=== PATIENT | female | born 1935 | race Caucasian/White ===

== ENCOUNTER → 2017-04-07 | Outpatient (CLI) | payer MEDICARE ==
[~2017-04-07] MED LIST: ISOVUE-370 76% 100ML VIAL (Q9967) As Ordered ONE
--- NOTE | 2017-04-07 15:29 | REP ---
CT of the chest with IV contrast for lymphoma restaging: Comparison is 04/21/2016. There is no mediastinal, hilar or axillary lymph node enlargement. This is unchanged. I suspect the spleen is enlarged measuring 15 cm AP diameter. This is unchanged from the prior study. The liver is not included in entirety, however, does not appear enlarged. The parenchyma of the liver and spleen appear homogeneous. There are no infiltrates or effusions. There are no lung masses or nodules. The proximal descending thoracic aorta is mildly ectatic measuring up to 3.7 cm transverse diameter. The ascending aorta measures 3.3 cm transverse diameter. The descending thoracic aorta gradually tapers to 2.8 cm diameter at the diaphragm. Cardiac size is upper normal. There is no pericardial effusion. There are surgical clips in the gallbladder fossa. Visualized portion of the pancreas is unremarkable. The adrenals and renal upper poles are unremarkable. There are no lytic, blastic or destructive skeletal changes. Impression: There is no lymphadenopathy. I suspect there is splenomegaly. This is unchanged. There are no infiltrates or effusions. There are no lytic, blastic or destructive skeletal changes. Cardiac size is upper normal, unchanged. There is mild ectasia of the proximal descending thoracic aorta, unchanged. Signed by Terrance Raza MD 04/07/2017 03:21 P
== END ==
LOC: M RAD 10:30
PROVIDERS: ATTEND Internal Medicine Hematology & Oncology
DX: C83.83 Other non-follicular lymphoma, intra-abdominal lymph nodes (principal)
CPT/HCPCS: 71260; Q9967

== ENCOUNTER → 2017-07-02 | Outpatient (REF) | payer MEDICARE | LOC: M SFHCCLAY 13:23 | PROVIDERS: ATTEND Family Medicine | DX: I10 Essential (primary) hypertension (principal); Z53.8 Procedure and treatment not carried out for other reasons ==

== ENCOUNTER → 2018-04-08 | Outpatient (CLI) | payer MEDICARE ==
[~2018-04-08] MED LIST changes: +ISOVUE-370 76% 100ML VIAL (Q9967) As Ordered; -ISOVUE-370 76% 100ML VIAL (Q9967) As Ordered ONE
== END ==
LOC: M RAD 12:08
DX: C85.89 Other specified types of non-Hodgkin lymphoma, extranodal and solid organ sites (principal); R16.1 Splenomegaly, not elsewhere classified; J84.10 Pulmonary fibrosis, unspecified; R59.0 Localized enlarged lymph nodes
CPT/HCPCS: Q9967

== ENCOUNTER → 2018-04-26 | Outpatient (CLI) | payer MEDICARE | LOC: M RAD 08:18 | DX: Z85.79 Personal history of other malignant neoplasms of lymphoid, hematopoietic and related tissues (principal); K44.9 Diaphragmatic hernia without obstruction or gangrene; K57.30 Diverticulosis of large intestine without perforation or abscess without bleeding | CPT/HCPCS: Q9967 ==

== ENCOUNTER → 2018-08-01 | Outpatient (CLI) | payer MEDICARE | LOC: M RAD 13:09 | DX: C85.89 Other specified types of non-Hodgkin lymphoma, extranodal and solid organ sites (principal) | CPT/HCPCS: Q9967 ==

== ENCOUNTER 2018-08-25 09:12 | Day surgery (SDC) | payer MEDICARE ==
[2018-08-25] MEDS: OFLOXACIN 0.3 % (OCUFLOX) OPTH SOL 5ML OS (07:00)
[2018-08-25] MEDS: TROPICAMIDE 1% OPHTH SOLN 2ML OS (07:00)
[2018-08-25] MEDS ORDERED: fentaNYL 100 MCG/2 ML INJECTION (J3010) As Ordered (09:59)
[2018-08-25] MEDS ORDERED: MIDAZOLAM INJ 2 MG/2 ML VIAL (J2250) As Ordered (09:59)
[2018-08-25] MEDS: PHENYLEPHRINE 2.5% OPHTH SOL 2ML OS (10:10)
[2018-08-25] MEDS: PROPARACAINE 0.5% OPHTH SOL 15ML OS (10:10)
[2018-08-25] MEDS: DUOVISC (0.50ML VISCOAT/0.55ML PROVISC) OPHTH KIT As Ordered (10:15)
[2018-08-25] MEDS: LIDOCAINE 0.75%/EPINEPHRINE 0.025% IN BSS 1ML SYR INTRACAMERAL (OR ONLY) As Ordered (10:15)
[2018-08-25] MEDS: BALANCED SALT IRRIGATION SOLUTION 500ML BAG (FOR OR EYE MACHINE) As Ordered (10:15)
[2018-08-25] MEDS: POVIDONE-IODINE 5% OPHTH PREP SOL 30ML As Ordered (10:15)
== END 2018-08-25 11:07 | disposition home or self-care (01) ==
LOC: M SDC 09:12
DX: H25.12 Age-related nuclear cataract, left eye (principal); I10 Essential (primary) hypertension; M10.9 Gout, unspecified; H40.003 Preglaucoma, unspecified, bilateral; D68.51 Activated protein C resistance; R29.898 Other symptoms and signs involving the musculoskeletal system; R59.0 Localized enlarged lymph nodes; C85.90 Non-Hodgkin lymphoma, unspecified, unspecified site; Z88.0 Allergy status to penicillin; Z88.1 Allergy status to other antibiotic agents; Z88.2 Allergy status to sulfonamides; Z79.899 Other long term (current) drug therapy; Z79.82 Long term (current) use of aspirin; Z96.653 Presence of artificial knee joint, bilateral; Z92.21 Personal history of antineoplastic chemotherapy; Z92.3 Personal history of irradiation; Z87.891 Personal history of nicotine dependence
CPT/HCPCS: 66984

== ENCOUNTER 2018-09-08 09:43 | Day surgery (SDC) | payer MEDICARE ==
[~2018-09-08] VITALS: Ht 160 cm; Wt 85.7 kg
[~2018-09-08 09:43] MED LIST changes: +ASPI1TAB PO; +BALANCED SALT IRRIGATION SOLUTION 500ML BAG (FOR OR EYE MACHINE) As Ordered ONE; +DUOVISC (0.50ML VISCOAT/0.55ML PROVISC) OPHTH KIT As Ordered ONE; +IPRA6SP; -ISOVUE-370 76% 100ML VIAL (Q9967) As Ordered; +LIDOCAINE 0.75%/EPINEPHRINE 0.025% IN BSS 1ML SYR INTRACAMERAL (OR ONLY) As Ordered ONE; +LOSA50TA73 PO; +OFLOXACIN 0.3 % (OCUFLOX) OPTH SOL 5ML OD ONE; +PHENYLEPHRINE 2.5% OPHTH SOL 2ML OD ONE; +POVIDONE-IODINE 5% OPHTH PREP SOL 30ML As Ordered ONE; +PROPARACAINE 0.5% OPHTH SOL 15ML OD ONE; +TROPICAMIDE 1% OPHTH SOLN 2ML OD ONE; +TYLE325T5 PO
[2018-09-08] MEDS ORDERED: fentaNYL 100 MCG/2 ML INJECTION (J3010) As Ordered ONE (10:02)
[2018-09-08] MEDS ORDERED: MIDAZOLAM INJ 2 MG/2 ML VIAL (J2250) As Ordered ONE (10:03)
[2018-09-08] MEDS ORDERED: DUOVISC (0.50ML VISCOAT/0.55ML PROVISC) OPHTH KIT As Ordered ONE (11:08)
[2018-09-08 11:45] VITALS: BP 145/74
[2018-09-08] MEDS ORDERED: ONDANSETRON 4MG/2ML VIAL (J2405) IV PRN (12:15)
--- NOTE | 2018-09-08 16:09 | RO ---
DATE OF PROCEDURE: 09/08/2018 PREOPERATIVE DIAGNOSES: 1. Visually significant nuclear sclerotic cataract right eye. 2. Small pupil right eye. POSTOPERATIVE DIAGNOSES: 1. Visually significant nuclear sclerotic cataract right eye. 2. Small pupil right eye. PROCEDURE: 1. Complex cataract extraction with use of phacoemulsification and placement of intraocular lens, AU00T0, 22.0 (model and power of lens) D, right eye, with use of I-Ring. SURGEON: Elia Sandoval DO ONSHORE DIVER: None. ANESTHESIA: Local with monitored anesthesia care (MAC). COMPLICATIONS: None. POSTOPERATIVE CONDITION: Stable. INDICATIONS FOR SURGERY: 1. Blurred vision affecting patients activities of daily living. DESCRIPTION OF PROCEDURE: The patient was seen in the preoperative area and properly identified. The correct operative eye was identified and marked. The patient received topical anesthetic, antibiotics, and topical dilating drops. The patient was then transferred to the operating room. The correct side was re-identified, and a time-out was performed. The eye was prepped and draped in a sterile fashion. The eyelids were isolated with Tegaderm tape, and the lids were held open with an adjustable speculum. A 1.0 mm paracentesis incision was made. Intraocular preservative-free Shugarcaine was then injected into the anterior chamber. Viscoelastic was then injected into the anterior chamber through the paracentesis. Using a 2.4 mm sharp-tipped keratome, the anterior chamber was entered via a temporal clear cornea incision. An I-Ring was placed within the eye and positioned onto the iris to expand the pupil. A continuous curvilinear capsulorrhexis was created with Utrata forceps. Hydrodissection was performed with balanced salt solution (BSS) on a blunt cannula until the nucleus was able to rotate freely. The crystalline lens was phacoemulsified and aspirated. Irrigation/aspiration was used to remove the cortical material. Cohesive viscoelastic was placed into the capsular bag to deepen it. The implant was placed into the capsular bag and allowed to unfold. Placement was confirmed by visualizing the anterior capsulorrhexis. Irrigation/aspiration was used to remove the viscoelastic. The I-Ring was removed from the eye. The clear corneal incision was hydrated with BSS on a blunt cannula. The lens was well positioned. The incisions were then tested for leaks and found to be negative. The eye was then palpated for appropriate pressure and adjusted accordingly with BSS. The eyelid speculum was then carefully removed. A shield was placed over the eye. The patient tolerated the procedure well and was discharged to the recovery unit in a stable condition.
== END 2018-09-08 12:07 | disposition home or self-care (01) ==
LOC: M SDC 09:43
PROVIDERS: ATTEND Ophthalmology
DX: H25.11 Age-related nuclear cataract, right eye (principal); H21.561 Pupillary abnormality, right eye; I10 Essential (primary) hypertension; Z88.0 Allergy status to penicillin; Z88.2 Allergy status to sulfonamides; Z92.3 Personal history of irradiation; Z79.82 Long term (current) use of aspirin; Z79.899 Other long term (current) drug therapy; M10.9 Gout, unspecified; Z87.891 Personal history of nicotine dependence
CPT/HCPCS: 66982; J2250; J3010; V2632

== ENCOUNTER → 2019-01-05 | Outpatient (CLI) | payer MEDICARE ==
[~2019-01-05] MED LIST changes: -ASPI1TAB PO; +ASPI81TA26 PO; -BALANCED SALT IRRIGATION SOLUTION 500ML BAG (FOR OR EYE MACHINE) As Ordered ONE; -DUOVISC (0.50ML VISCOAT/0.55ML PROVISC) OPHTH KIT As Ordered ONE; +ISOVUE-370 76% 100ML VIAL (Q9967) As Ordered ONE; -LIDOCAINE 0.75%/EPINEPHRINE 0.025% IN BSS 1ML SYR INTRACAMERAL (OR ONLY) As Ordered ONE; -LOSA50TA73 PO; +LOSA50TA88 PO; -OFLOXACIN 0.3 % (OCUFLOX) OPTH SOL 5ML OD ONE; -PHENYLEPHRINE 2.5% OPHTH SOL 2ML OD ONE; -POVIDONE-IODINE 5% OPHTH PREP SOL 30ML As Ordered ONE; -PROPARACAINE 0.5% OPHTH SOL 15ML OD ONE; -TROPICAMIDE 1% OPHTH SOLN 2ML OD ONE
--- NOTE | 2019-01-06 14:37 | REP ---
CT CHEST WITH IV CONTRAST: TECHNIQUE: Axial contrast enhanced images from the thoracic inlet to the upper abdomen using 100 mL Isovue 370 intravenous contrast material with multiplanar reformations. COMPARISON: 08/01/2018 There is a mildly enlarged right infrahilar lymph node. It measures 1.3 cm in short-axis dimension. This has increased since the prior study. No other mediastinal, hilar, or chest wall lymphadenopathy is visualized. There are mild atherosclerotic calcifications of the thoracic aorta. There is stable dilatation of the distal aortic arch, 3.7 cm in diameter. Heart is slightly enlarged. There is no pleural or pericardial effusion. No acute infiltrate is seen in either lung. There are degenerative changes of the spine. Patient has had a prior cholecystectomy. There is a small hiatal hernia. IMPRESSION: Mildly enlarged right infrahilar lymph node 1.3 cm in short-axis dimension not seen on prior study. No other evidence of adenopathy. No other acute finding. Electronically Signed by Terrance Mills MD 01/07/2019 02:53 P
== END ==
LOC: M RAD 12:09
PROVIDERS: ATTEND Internal Medicine Hematology & Oncology
DX: Z01.812 Encounter for preprocedural laboratory examination (principal); R59.0 Localized enlarged lymph nodes; D69.6 Thrombocytopenia, unspecified; D70.9 Neutropenia, unspecified
CPT/HCPCS: 71260; Q9967

== ENCOUNTER → 2019-06-16 | Outpatient (REF) | payer MEDICARE ==
[~2019-06-16] MED LIST changes: -ISOVUE-370 76% 100ML VIAL (Q9967) As Ordered ONE
[2019-06-16 18:02] LABS: BASO % 0.8 % (0.0-1.0); EOS # 0.3 10^3/uL (0.0-0.5); EOS % 5.2 % (0.0-3.0); HEMOGLOBIN 13.3 g/dl (12.0-15.5); LYMPH # 1.6 10^3/uL (1.5-5.0); LYMPH % 32.4 % (24.0-44.0); MEAN CORPUSCULAR HGB CONC 34.1 g/dl (32.0-36.5); MEAN CORPUSCULAR VOLUME 96.8 fl (80.0-96.0); MONO # 0.4 10^3/uL (0.0-0.8); MONO % 8.5 % (0.0-5.0); NEUTROPHILS # 2.5 10^3/uL (1.5-8.5); NEUTROPHILS % 52.9 % (36.0-66.0); PLATELET COUNT, AUTOMATED 135 10^3/uL (150-450); RED BLOOD COUNT 4.03 10^6/uL (4.00-5.40); WHITE BLOOD COUNT 4.8 10^3/uL (4.0-10.0)
[2019-06-16 18:11] LABS: ALBUMIN 4.1 GM/DL (3.2-5.2); ALT/SGPT 19 U/L (12-78); BILIRUBIN,TOTAL 0.9 MG/DL (0.2-1.0); BLOOD UREA NITROGEN 13 MG/DL (7-18); CALCIUM LEVEL 9.3 MG/DL (8.8-10.2); CARBON DIOXIDE LEVEL 32 MEQ/L (21-32); CHLORIDE LEVEL 107 MEQ/L (98-107); GLOMERULAR FILTRATION RATE > 60.0 (>32); GLUCOSE, FASTING 109 MG/DL (70-100); LDH LACTATE DEHYDROGENASE 170 U/L (84-246); POTASSIUM SERUM 4.5 MEQ/L (3.5-5.1); SODIUM LEVEL 143 MEQ/L (136-145); TOTAL PROTEIN 7.3 GM/DL (6.4-8.2)
== END ==
LOC: M LABDRAWC 16:11
PROVIDERS: ATTEND Physician Assistant
DX: C85.89 Other specified types of non-Hodgkin lymphoma, extranodal and solid organ sites (principal)

== ENCOUNTER → 2019-06-20 | Outpatient (CLI) | payer MEDICARE ==
[~2019-06-20] MED LIST changes: +ISOVUE-370 76% 100ML VIAL (Q9967) As Ordered ONE
--- NOTE | 2019-06-20 19:00 | REP ---
CT chest with IV contrast: History: Restaging. Adenopathy. History of non-Hodgkins lymphoma. Comparison chest CT study January 05, 2019. CT contrast dose: 75 ml of intravenous Isovue 378. CT findings: Digital quality compliance manager radiographs are unremarkable. The proximal descending thoracic aorta remains ectatic, 3.7 cm in transverse dimension, unchanged. The ascending aorta measures 3.5 cm in AP dimension at the level of the main pulmonary artery. Vascular calcifications noted. There is no evidence of mediastinal mass or adenopathy. No pleural or pericardial effusion is seen. The previously described right inferior hilar lymph node is no longer visible. There is no evidence of hilar lymphadenopathy. There is no evidence to suggest pulmonary embolus. Mitral annular calcification and mild cardiomegaly are observed unchanged. Lung window settings show no evidence of infiltrate or pulmonary mass lesion. There is some mild linear fibrosis in the left lower lobe posteromedially unchanged. A small hiatal hernia is seen. No adrenal lesion is observed. Gallbladder is surgically absent. The spleen remains mildly enlarged, 13.9 cm in greatest anteroposterior span, previously, 14.9 cm. Impression: Mild cardiomegaly again noted. Recently noted right infrahilar lymph node no longer apparent. No evidence of adenopathy. Mild splenomegaly. Vascular calcification. Ectatic proximal descending thoracic aorta unchanged. Electronically Signed by Telly Layne MD 06/21/2019 07:46 A
== END ==
LOC: M RAD 13:55
PROVIDERS: ATTEND Physician Assistant
DX: I51.7 Cardiomegaly (principal); R16.1 Splenomegaly, not elsewhere classified; K44.9 Diaphragmatic hernia without obstruction or gangrene; C85.89 Other specified types of non-Hodgkin lymphoma, extranodal and solid organ sites
CPT/HCPCS: 71260; Q9967

== ENCOUNTER → 2019-12-29 | Outpatient (REF) | payer MEDICARE ==
[~2019-12-29] MED LIST changes: -ISOVUE-370 76% 100ML VIAL (Q9967) As Ordered ONE
[2019-12-29 11:53] LABS: EOS # 0.2 10^3/uL (0.0-0.5); HEMATOCRIT 35.6 % (36.0-47.0); HEMOGLOBIN 12.5 g/dl (12.0-15.5); LYMPH # 1.3 10^3/uL (1.5-5.0); LYMPH % 32.7 % (24.0-44.0); MEAN CORPUSCULAR HEMOGLOBIN 33.1 pg (27.0-33.0); MEAN CORPUSCULAR HGB CONC 35.1 g/dl (32.0-36.5); MEAN CORPUSCULAR VOLUME 94.2 fl (80.0-96.0); MONO # 0.4 10^3/uL (0.0-0.8); MONO % 10.8 % (0.0-5.0); NEUTROPHILS % 50.2 % (36.0-66.0); PLATELET COUNT, AUTOMATED 112 10^3/uL (150-450); RED BLOOD COUNT 3.78 10^6/uL (4.00-5.40)
[2019-12-29 12:08] LABS: ALBUMIN 3.9 GM/DL (3.2-5.2); ALT/SGPT 20 U/L (12-78); BLOOD UREA NITROGEN 14 MG/DL (7-18); CARBON DIOXIDE LEVEL 28 MEQ/L (21-32); CHLORIDE LEVEL 108 MEQ/L (98-107); CREATININE FOR GFR 0.77 MG/DL (0.55-1.30); GLOMERULAR FILTRATION RATE > 60.0 (>32); GLUCOSE, FASTING 94 MG/DL (70-100); LDH LACTATE DEHYDROGENASE 159 U/L (84-246); POTASSIUM SERUM 4.5 MEQ/L (3.5-5.1); SODIUM LEVEL 142 MEQ/L (136-145); TOTAL PROTEIN 7.1 GM/DL (6.4-8.2)
== END ==
LOC: M LABDRAWC 11:24
PROVIDERS: ATTEND Internal Medicine Hematology & Oncology
DX: C85.89 Other specified types of non-Hodgkin lymphoma, extranodal and solid organ sites (principal); D69.6 Thrombocytopenia, unspecified

== ENCOUNTER → 2020-01-04 | Outpatient (CLI) | payer MEDICARE ==
[~2020-01-04] MED LIST changes: +ISOVUE-370 76% 100ML VIAL As Ordered ONE
--- NOTE | 2020-01-04 14:10 | REP ---
CT CHEST WITH IV CONTRAST: TECHNIQUE: Axial contrast enhanced images from the thoracic inlet to the upper abdomen using 100 mL Isovue-370 intravenous contrast material with multiplanar reformations. COMPARISON: 06/20/2019 The lungs are free of infiltrate. No suspicious nodular opacity is seen in either lung. There is no evidence of mediastinal, hilar, or chest wall lymphadenopathy. There is no pleural or pericardial effusion. There is again ectasia and calcification of the thoracic aorta with no aneurysm. The heart is mildly enlarged. There is a small hiatal hernia. Spleen is mildly enlarged. There is evidence of prior cholecystectomy. Small cyst is seen in the upper pole of the right kidney. There are degenerative changes of the spine. IMPRESSION: No new adenopathy or lung abnormality. Stable exam as discussed above. Electronically Signed by Terrance Mills MD 01/04/2020 02:44 P
== END ==
LOC: M RAD 11:55
PROVIDERS: ATTEND Internal Medicine Hematology & Oncology
DX: C85.89 Other specified types of non-Hodgkin lymphoma, extranodal and solid organ sites (principal)
CPT/HCPCS: 71260; Q9967

== ENCOUNTER → 2020-06-25 | Outpatient (REF) | payer MEDICARE ==
[~2020-06-25] MED LIST changes: -ISOVUE-370 76% 100ML VIAL As Ordered ONE
[2020-06-25 12:53] LABS: EOS # 0.1 10^3/uL (0.0-0.5); EOS % 4.5 % (0.0-3.0); HEMATOCRIT 35.1 % (36.0-47.0); HEMOGLOBIN 11.7 g/dl (12.0-15.5); LYMPH % 35.7 % (24.0-44.0); MEAN CORPUSCULAR HEMOGLOBIN 31.4 pg (27.0-33.0); MEAN CORPUSCULAR HGB CONC 33.3 g/dl (32.0-36.5); MEAN CORPUSCULAR VOLUME 94.1 fl (80.0-96.0); MONO # 0.2 10^3/uL (0.0-0.8); NEUTROPHILS # 1.4 10^3/uL (1.5-8.5); NEUTROPHILS % 50.1 % (36.0-66.0); PLATELET COUNT, AUTOMATED 100 10^3/uL (150-450); RED BLOOD COUNT 3.73 10^6/uL (4.00-5.40); WHITE BLOOD COUNT 2.9 10^3/uL (4.0-10.0)
[2020-06-25 12:57] LABS: ALBUMIN 3.7 GM/DL (3.2-5.2); ALT/SGPT 15 U/L (12-78); BILIRUBIN,TOTAL 0.8 MG/DL (0.2-1.0); BLOOD UREA NITROGEN 12 MG/DL (7-18); CALCIUM LEVEL 9.1 MG/DL (8.8-10.2); CARBON DIOXIDE LEVEL 29 MEQ/L (21-32); CHLORIDE LEVEL 109 MEQ/L (98-107); CREATININE FOR GFR 0.75 MG/DL (0.55-1.30); GLOMERULAR FILTRATION RATE > 60.0 (>32); GLUCOSE, FASTING 98 MG/DL (70-100); LDH LACTATE DEHYDROGENASE 151 U/L (84-246); POTASSIUM SERUM 4.1 MEQ/L (3.5-5.1); SODIUM LEVEL 143 MEQ/L (136-145); TOTAL PROTEIN 6.8 GM/DL (6.4-8.2)
== END ==
LOC: M LABDRAWC 11:09
PROVIDERS: ATTEND Internal Medicine Hematology & Oncology
DX: C85.89 Other specified types of non-Hodgkin lymphoma, extranodal and solid organ sites (principal)

== ENCOUNTER → 2020-07-01 | Outpatient (CLI) | payer MEDICARE ==
[~2020-07-01] MED LIST changes: +ISOVUE-370 76% 100ML VIAL As Ordered ONE
--- NOTE | 2020-07-01 14:42 | REP ---
INDICATION: NON HODGKIN'S LYMPHOMA. COMPARISON: 01/04/2020. TECHNIQUE: CT chest performed following the intravenous administration of 100 cc of Isovue 370. Sagittal and coronal reconstruction images are performed. FINDINGS: Lungs: Mild fibrotic changes are seen similar to the prior exam. No new nodules identified. Mediastinum: No adenopathy. Jacinda: No adenopathy. Axilla: No adenopathy. Pleura: No effusion. Heart: There is mild cardiomegaly. There is no pericardial effusion. Thoracic aorta: No aneurysm or dissection. Stable mild ectasia of the distal aortic arch with scattered atherosclerotic calcifications. Upper abdominal structures: There is a small hiatal hernia. The patient has had a prior cholecystectomy. Visualized osseous structures: There are mild degenerative changes of the spine without compression deformity. IMPRESSION: No new adenopathy or nodule. No change since prior exam. <Electronically signed by Terrance Mills > 07/01/20 [id number]
== END ==
LOC: M RAD 12:08
PROVIDERS: ATTEND Internal Medicine Hematology & Oncology
DX: C85.89 Other specified types of non-Hodgkin lymphoma, extranodal and solid organ sites (principal)
CPT/HCPCS: 71260; Q9967

== ENCOUNTER → 2021-08-06 | Outpatient (REF) | payer MEDICARE ==
[~2021-08-06] MED LIST changes: -ISOVUE-370 76% 100ML VIAL As Ordered ONE; +LOSA50TA28 PO; -LOSA50TA88 PO
[2021-08-06 12:55] LABS: BLOOD UREA NITROGEN 17 MG/DL (7-18); CREATININE FOR GFR 0.75 MG/DL (0.55-1.30); GLOMERULAR FILTRATION RATE > 60.0 (>32)
== END ==
LOC: M LABDRAWC 11:43
PROVIDERS: ATTEND Internal Medicine Hematology & Oncology
DX: C85.89 Other specified types of non-Hodgkin lymphoma, extranodal and solid organ sites (principal)

== ENCOUNTER → 2021-08-11 | Outpatient (CLI) | payer MEDICARE ==
[~2021-08-11] MED LIST changes: +ISOVUE-370 76% 100ML VIAL As Ordered ONE; -LOSA50TA28 PO; +LOSA50TA88 PO
--- NOTE | 2021-08-11 10:39 | REP ---
INDICATION: MARGINAL ZONE LYMPHOMA. COMPARISON: 07/01/2020. TECHNIQUE: CT chest performed following the intravenous administration of 100 cc of Isovue 370. Sagittal and coronal reconstruction images are performed. FINDINGS: Lungs: There stable mild fibrotic changes bilaterally. No new nodule is visualized. There is no acute infiltrate. Mediastinum: No adenopathy. Jacinda: No adenopathy. Axilla: No adenopathy. Pleura: No effusion. Heart: Mildly enlarged. Thoracic aorta: No aneurysm or dissection. There is stable ectasia of the aortic arch. Upper abdominal structures: There is a small hiatal hernia. There has been a prior cholecystectomy. Visualized osseous structures: There are degenerative changes of the spine without compression deformity. IMPRESSION: Stable exam, no new adenopathy or nodule. <Electronically signed by Terrance Mills > 08/11/21 [id number]
== END ==
LOC: M RAD 09:20
PROVIDERS: ATTEND Internal Medicine Hematology & Oncology
DX: C85.89 Other specified types of non-Hodgkin lymphoma, extranodal and solid organ sites (principal)
CPT/HCPCS: 71260; Q9967

== ENCOUNTER → 2022-02-11 | Outpatient (REF) | payer MEDICARE ==
[~2022-02-11] MED LIST changes: -ISOVUE-370 76% 100ML VIAL As Ordered ONE; +LOSA50TA28 PO; -LOSA50TA88 PO
[2022-02-11 11:52] LABS: HEMATOCRIT 36.3 % (36.0-47.0); HEMOGLOBIN 12.5 g/dl (12.0-15.5); MEAN CORPUSCULAR HEMOGLOBIN 31.7 pg (27.0-33.0); MEAN CORPUSCULAR HGB CONC 34.4 g/dl (32.0-36.5); MEAN CORPUSCULAR VOLUME 92.1 fl (80.0-96.0); PLATELET COUNT, AUTOMATED 136 10^3/uL (150-450); RED BLOOD COUNT 3.94 10^6/uL (4.00-5.40); WHITE BLOOD COUNT 4.8 10^3/uL (4.0-10.0)
[2022-02-11 12:23] LABS: BLOOD UREA NITROGEN 14 MG/DL (7-18); CARBON DIOXIDE LEVEL 28 MEQ/L (21-32); CHLORIDE LEVEL 109 MEQ/L (98-107); CREATININE FOR GFR 0.86 MG/DL (0.55-1.30); GLOMERULAR FILTRATION RATE > 60.0 (>32); GLUCOSE, FASTING 104 MG/DL (70-100); NT-PRO BNP 271 PG/ML (<450); POTASSIUM SERUM 4.4 MEQ/L (3.5-5.1); SODIUM LEVEL 143 MEQ/L (136-145)
== END ==
LOC: M LABDRAWC 11:22
PROVIDERS: ATTEND Nurse Practitioner Family
DX: R60.0 Localized edema (principal); I48.0 Paroxysmal atrial fibrillation

== ENCOUNTER → 2022-02-11 | Outpatient (REF) | payer MEDICARE ==
[2022-02-11 12:03] LABS: INR 1.71; PROTHROMBIN TIME 20.5 SECONDS (12.7-14.5)
== END ==
LOC: M SFHCCLAY 08:55
PROVIDERS: ATTEND Family Medicine
DX: I48.11 Longstanding persistent atrial fibrillation (principal); Z79.01 Long term (current) use of anticoagulants

== ENCOUNTER → 2022-08-13 | Outpatient (REF) | payer MEDICARE ==
[2022-08-13 12:11] LABS: INR 2.76; PROTHROMBIN TIME 29.6 SECONDS (12.5-14.5)
== END ==
LOC: M SFHCCLAY 08:59
PROVIDERS: ATTEND Family Medicine
DX: Z79.01 Long term (current) use of anticoagulants (principal)

== ENCOUNTER → 2022-08-13 | Outpatient (REF) | payer MEDICARE ==
[2022-08-13 12:01] LABS: HEMOGLOBIN 11.4 g/dl (12.0-15.5); MEAN CORPUSCULAR HEMOGLOBIN 31.7 pg (27.0-33.0); MEAN CORPUSCULAR HGB CONC 32.6 g/dl (32.0-36.5); MEAN CORPUSCULAR VOLUME 97.2 fl (80.0-96.0); PLATELET COUNT, AUTOMATED 112 10^3/uL (150-450)
[2022-08-13 12:24] LABS: LDH LACTATE DEHYDROGENASE 168 U/L (120-246)
[2022-08-13 12:25] LABS: ALBUMIN 3.7 G/DL (3.2-5.2); ALKALINE PHOSPHATASE 61 U/L (46-116); ALT/SGPT 12 U/L (7.0-40); AST/SGOT 16 U/L (<34); BILIRUBIN,TOTAL 0.9 MG/DL (0.3-1.2); BLOOD UREA NITROGEN 12 MG/DL (9-23); CALCIUM LEVEL 8.9 MG/DL (8.3-10.6); CARBON DIOXIDE LEVEL 30 MMOL/L (20-31); CHLORIDE LEVEL 110 MMOL/L (98-107); CREATININE FOR GFR 0.78 MG/DL (0.55-1.30); GLOMERULAR FILTRATION RATE > 60.0 (>32); GLUCOSE, FASTING 99 MG/DL (74-106); POTASSIUM SERUM 4.3 MMOL/L (3.5-5.1); SODIUM LEVEL 141 MMOL/L (136-145); TOTAL PROTEIN 6.4 G/DL (5.7-8.2)
== END ==
LOC: M LABDRAWC 11:24
PROVIDERS: ATTEND Internal Medicine Hematology & Oncology
DX: C85.89 Other specified types of non-Hodgkin lymphoma, extranodal and solid organ sites (principal)

== ENCOUNTER → 2022-09-01 | Outpatient (CLI) | payer MEDICARE ==
[~2022-09-01] MED LIST changes: +ISOVUE-370 76% 100ML VIAL As Ordered ONE
== END ==
LOC: M RAD 16:44
PROVIDERS: ATTEND Internal Medicine Hematology & Oncology
DX: C85.89 Other specified types of non-Hodgkin lymphoma, extranodal and solid organ sites (principal)
CPT/HCPCS: 71260; Q9967

== ENCOUNTER → 2022-09-24 | Outpatient (REF) | payer MEDICARE ==
[~2022-09-24] MED LIST changes: -ISOVUE-370 76% 100ML VIAL As Ordered ONE
[2022-09-24 13:02] LABS: BLOOD UREA NITROGEN 20 MG/DL (9-23); CALCIUM LEVEL 9.7 MG/DL (8.3-10.6); CARBON DIOXIDE LEVEL 30 MMOL/L (20-31); CHLORIDE LEVEL 108 MMOL/L (98-107); CREATININE FOR GFR 0.85 MG/DL (0.55-1.30); GLOMERULAR FILTRATION RATE > 60.0 (>32); GLUCOSE, FASTING 100 MG/DL (74-106); POTASSIUM SERUM 4.8 MMOL/L (3.5-5.1); SODIUM LEVEL 143 MMOL/L (136-145)
== END ==
LOC: M SFHCCLAY 08:15
PROVIDERS: ATTEND Family Medicine
DX: I10 Essential (primary) hypertension (principal)

== ENCOUNTER → 2023-07-23 | Outpatient (REF) | payer MEDICARE | LOC: M SFHCCLAY 16:57 | PROVIDERS: ATTEND Family Medicine | DX: B34.9 Viral infection, unspecified (principal) ==

== ENCOUNTER → 2023-09-09 | Outpatient (REF) | payer MEDICARE ==
[2023-09-09 19:50] LABS: LDH LACTATE DEHYDROGENASE 177 U/L (120-246)
[2023-09-09 19:52] LABS: ALBUMIN 4.2 G/DL (3.2-5.2); ALKALINE PHOSPHATASE 69 U/L (46-116); ALT/SGPT 14 U/L (7.0-40); AST/SGOT 14 U/L (<34); BLOOD UREA NITROGEN 20 MG/DL (9-23); CALCIUM LEVEL 9.7 MG/DL (8.3-10.6); CARBON DIOXIDE LEVEL 30 MMOL/L (20-31); CHLORIDE LEVEL 107 MMOL/L (98-107); CREATININE FOR GFR 0.91 MG/DL (0.55-1.30); GLOMERULAR FILTRATION RATE > 60.0 (>32); GLUCOSE, FASTING 97 MG/DL (74-106); POTASSIUM SERUM 4.6 MMOL/L (3.5-5.1); SODIUM LEVEL 140 MMOL/L (136-145); TOTAL PROTEIN 7.1 G/DL (5.7-8.2)
[2023-09-09 20:08] LABS: BASO # 0.1 10^3/uL (0.0-0.2); BASO % 1.2 % (0.0-1.0); EOS # 0.2 10^3/uL (0.0-0.5); EOS % 4.4 % (0.0-3.0); HEMATOCRIT 38.1 % (36.0-47.0); HEMOGLOBIN 12.8 g/dl (12.0-15.5); LYMPH # 1.5 10^3/uL (1.5-5.0); LYMPH % 34.5 % (24.0-44.0); MEAN CORPUSCULAR HEMOGLOBIN 32.4 pg (27.0-33.0); MEAN CORPUSCULAR HGB CONC 33.6 g/dl (32.0-36.5); MEAN CORPUSCULAR VOLUME 96.5 fl (80.0-96.0); MONO # 0.4 10^3/uL (0.0-0.8); MONO % 9.5 % (2.0-8.0); NEUTROPHILS # 2.2 10^3/uL (1.5-8.5); NEUTROPHILS % 50.2 % (36.0-66.0); PLATELET COUNT, AUTOMATED 128 10^3/uL (150-450); RED BLOOD COUNT 3.95 10^6/uL (4.00-5.40); WHITE BLOOD COUNT 4.3 10^3/uL (4.0-10.0)
== END ==
LOC: M LABDRAWC 17:28
PROVIDERS: ATTEND Internal Medicine Hematology & Oncology
DX: C85.89 Other specified types of non-Hodgkin lymphoma, extranodal and solid organ sites (principal)

== ENCOUNTER → 2023-09-14 | Outpatient (CLI) | payer MEDICARE ==
[~2023-09-14] MED LIST changes: +ISOVUE-370 76% 100ML VIAL As Ordered ONE
== END ==
LOC: M RAD 13:06
PROVIDERS: ATTEND Internal Medicine Hematology & Oncology
DX: C85.89 Other specified types of non-Hodgkin lymphoma, extranodal and solid organ sites (principal)
CPT/HCPCS: 71260; Q9967

== ENCOUNTER → 2024-01-21 | Outpatient (REF) | payer MEDICARE ==
[~2024-01-21] MED LIST changes: -ISOVUE-370 76% 100ML VIAL As Ordered ONE; +LOSA100T46; +MECL25CH45; +METO1TAB32; +SPIR-10; +WARF4TAB51; +WARF4TAB51 PO
[2024-01-21 13:49] LABS: CALCIUM LEVEL 9.5 MG/DL (8.3-10.6); CREATININE FOR GFR 0.97 MG/DL (0.55-1.30); GLOMERULAR FILTRATION RATE 57.6 (>32); POTASSIUM SERUM 3.9 MMOL/L (3.5-5.1)
[2024-01-21 14:13] LABS: HEMOGLOBIN A1c 5.2 % (4.0-6.0)
== END ==
LOC: M SFHCCLAY 07:56
PROVIDERS: ATTEND Family Medicine
DX: Z79.01 Long term (current) use of anticoagulants (principal); I48.11 Longstanding persistent atrial fibrillation; I10 Essential (primary) hypertension; M19.90 Unspecified osteoarthritis, unspecified site; Z79.899 Other long term (current) drug therapy

== ENCOUNTER → 2024-05-03 | Outpatient (REF) | payer MEDICARE ==
[2024-05-03 17:16] LABS: URIC ACID 5.5 MG/DL (3.1-7.8)
[2024-05-03 17:19] LABS: CALCIUM LEVEL 9.7 MG/DL (8.3-10.6); CREATININE FOR GFR 1.06 MG/DL (0.55-1.30); POTASSIUM SERUM 4.8 MMOL/L (3.5-5.1); RHEUMATOID FACTOR QUANT 5.9 IU/ML (<14)
[2024-05-03 17:22] LABS: INR 2.47; PROTHROMBIN TIME 25.8 SECONDS (12.5-14.5)
== END ==
LOC: M SFHCCLAY 09:12
PROVIDERS: ATTEND Family Medicine
DX: M10.072 Idiopathic gout, left ankle and foot (principal); Z79.01 Long term (current) use of anticoagulants; I48.11 Longstanding persistent atrial fibrillation

== ENCOUNTER → 2024-07-25 | Outpatient (REF) | payer MEDICARE ==
[2024-07-25 11:22] LABS: HEMATOCRIT 37.4 % (36.0-47.0); HEMOGLOBIN 11.9 g/dl (12.0-15.5); MEAN CORPUSCULAR HGB CONC 31.8 g/dl (32.0-36.5); MEAN CORPUSCULAR VOLUME 97.4 fl (80.0-96.0); PLATELET COUNT, AUTOMATED 127 10^3/uL (150-450); RED BLOOD COUNT 3.84 10^6/uL (4.00-5.40); WHITE BLOOD COUNT 3.8 10^3/uL (4.0-10.0)
[2024-07-25 11:44] LABS: LDH LACTATE DEHYDROGENASE 146 U/L (120-246)
[2024-07-25 11:45] LABS: ALBUMIN 3.7 G/DL (3.2-5.2); ALKALINE PHOSPHATASE 67 U/L (35-104); ALT/SGPT 19 U/L (7.0-40); AST/SGOT 13 U/L (<34); BLOOD UREA NITROGEN 17 MG/DL (9-23); CALCIUM LEVEL 9.5 MG/DL (8.3-10.6); CARBON DIOXIDE LEVEL 27 MMOL/L (20-31); CHLORIDE LEVEL 109 MMOL/L (98-107); CREATININE FOR GFR 0.91 MG/DL (0.55-1.30); GLOMERULAR FILTRATION RATE > 60.0 (>32); GLUCOSE, FASTING 93 MG/DL (74-106); POTASSIUM SERUM 4.4 MMOL/L (3.5-5.1); SODIUM LEVEL 141 MMOL/L (136-145); TOTAL PROTEIN 6.9 G/DL (5.7-8.2)
[2024-07-25 11:47] LABS: FREE T4 1.14 NG/DL (0.89-1.76); THYROID STIMULATING HORMONE 3.303 uIU/ML (0.55-4.78)
== END ==
LOC: M SFHCCLAY 08:04
PROVIDERS: ATTEND Family Medicine
DX: I48.11 Longstanding persistent atrial fibrillation (principal); Z79.01 Long term (current) use of anticoagulants; I10 Essential (primary) hypertension; C85.89 Other specified types of non-Hodgkin lymphoma, extranodal and solid organ sites